=== PATIENT | male | born 1950 | race Caucasian/White ===

== ENCOUNTER → 2016-11-16 11:25 | Outpatient (CLI) | payer MEDICARE, OTHER ==
[~2016-11-16 11:25] MED LIST: DILAUDID4 MG PO; FLOMAX0.4 MG PO; FUROSEMIDE40 MG PO; K-DUR20 MEQ PO; LONITEN10 MG PO; LOVENOX40 MG/0.4 SC; NEURONTIN 300300 MG PO; NORMODYNE / TR100 MG PO; NORVASC10 MG PO; OMEPRAZOLE40 MG PO; PAMELOR10 MG PO; RIFADIN150 MG PO
[2016-11-16 11:49] LABS: ANION GAP 12.8 mmol/L (8-16); CALCIUM 9.2 mg/dL (8.5-10.1); CREATININE - SERUM 1.7 mg/dL (0.6-1.3); POTASSIUM - SERUM 5.8 mmol/L (3.5-5.1)
[2016-11-19 15:13] VITALS: BMI 32.1
== END | disposition home or self-care (01) ==
LOC: D.LABREF 11:25
PROVIDERS: Student in an Organized Health Care Education/Training Program
DX: E87.5 Hyperkalemia (principal)

== ENCOUNTER 2016-11-16 12:58 | Emergency (ER) | payer MEDICARE, OTHER ==
[2016-11-16 14:03] LABS: BASOPHILS 0.2 % (0.0-2.0); EOSINOPHILS 1.4 % (0-7); HEMATOCRIT 37.9 % (42.0-54.0); HEMOGLOBIN 12.9 g/dL (13.5-17.5); IMMATURE GRANULOCYTES 0.6 % (0-5); LYMPHOCYTES 14.6 % (15-50); MCH 31.8 pg (26.0-34.0); MCV 93.3 fL (80.0-100.0); MONOCYTES 9.1 % (2-11); NEUTROPHILS 74.1 % (40-80); PLATELET COUNT 538 10x3/uL (130-400); RBC 4.06 10x6/uL (4.20-6.10); RDW 13.6 % (11.5-14.5); WBC 12.9 10x3/uL (4.8-10.8)
[2016-11-16 14:12] LABS: ALBUMIN 2.6 g/dL (3.4-5.0); ANION GAP 14.1 mmol/L (8-16); BILIRUBIN - TOTAL 0.78 mg/dL (0.2-1.3); CALCIUM 9.4 mg/dL (8.5-10.1); CARBON DIOXIDE 26.1 mmol/L (21.0-32.0); CREATININE - SERUM 1.8 mg/dL (0.6-1.3); POTASSIUM - SERUM 5.2 mmol/L (3.5-5.1); PROTEIN - SERUM 7.6 g/dL (6.4-8.2)
[2016-11-19 15:13] VITALS: BMI 32.1
== END 2016-11-16 15:11 | disposition home or self-care (01) ==
LOC: D.ER 12:58
PROVIDERS: Family Medicine
DX: E87.5 Hyperkalemia (principal); N18.9 Chronic kidney disease, unspecified; Z98.890 Other specified postprocedural states; I12.9 Hypertensive chronic kidney disease with stage 1 through stage 4 chronic kidney disease, or unspecified chronic kidney disease

== ENCOUNTER 2016-11-19 13:43 | Outpatient (CLI) | payer MEDICARE, OTHER ==
[~2016-11-19] VITALS: Ht 188 cm; Wt 113.6 kg
[2016-11-19 14:47] LABS: BASOPHILS 0.5 % (0.0-2.0); EOSINOPHILS 2.6 % (0-7); HEMATOCRIT 33.5 % (42.0-54.0); HEMOGLOBIN 11.2 g/dL (13.5-17.5); IMMATURE GRANULOCYTES 0.3 % (0-5); LYMPHOCYTES 26.9 % (15-50); MCH 31.5 pg (26.0-34.0); MCHC 33.4 g/dL (31.0-37.0); MCV 94.4 fL (80.0-100.0); MEAN PLATELET VOLUME 9.6 fL (7.4-10.4); MONOCYTES 10.7 % (2-11); PLATELET COUNT 490 10x3/uL (130-400); RBC 3.55 10x6/uL (4.20-6.10); RDW 13.7 % (11.5-14.5); WBC 8.7 10x3/uL (4.8-10.8)
[2016-11-19] MEDS ORDERED: LONITEN10 MG PO (14:54)
[2016-11-19] MEDS ORDERED: NORVASC10 MG PO (14:57)
[2016-11-19] MEDS ORDERED: FUROSEMIDE40 MG PO (14:57)
[2016-11-19] MEDS ORDERED: NORMODYNE / TR100 MG PO (14:57)
[2016-11-19] MEDS ORDERED: K-DUR20 MEQ PO (14:58)
[2016-11-19] MEDS ORDERED: FLOMAX0.4 MG PO (14:58)
[2016-11-19] MEDS ORDERED: PAMELOR10 MG PO (14:59)
[2016-11-19] MEDS ORDERED: OMEPRAZOLE40 MG PO (15:00)
[2016-11-19] MEDS ORDERED: LOVENOX40 MG/0.4 SC (15:00)
[2016-11-19] MEDS ORDERED: DILAUDID4 MG PO (15:01)
[2016-11-19] MEDS ORDERED: NEURONTIN 300300 MG PO (15:01)
[2016-11-19] MEDS ORDERED: RIFADIN150 MG PO (15:02)
[2016-11-19 15:05] LABS: ALBUMIN 2.2 g/dL (3.4-5.0); ANION GAP 13.9 mmol/L (8-16); BILIRUBIN - TOTAL 0.62 mg/dL (0.2-1.3); C-REACTIVE PROTEIN 5.3 mg/dL (0.0-0.9); CALCIUM 8.1 mg/dL (8.5-10.1); CARBON DIOXIDE 25.9 mmol/L (21.0-32.0); CREATININE - SERUM 1.3 mg/dL (0.6-1.3); POTASSIUM - SERUM 5.8 mmol/L (3.5-5.1); PROTEIN - SERUM 5.8 g/dL (6.4-8.2)
[2016-11-19 15:13] VITALS: BP 145/92; Ht 188 cm; Wt 113.6 kg
--- NOTE | 2016-11-19 15:28 | NUR ---
1525--PICC FLUSHED WITH 10CC SALINE AND 3CC HEPARIN 100/1ML. PICC DC'D. DISCHARGE INSTRUCTIONS GIVEN, PT VERBALIZES UNDERSTANDING. PT OFF UNIT VIA [place]. MANDO MARX
[2016-11-19 15:53] LABS: ERYTHROCYTE SEDIMENTATION RATE 84 mm/hr (0-20)
== END 2016-11-19 15:25 | disposition home or self-care (01) ==
LOC: D.OPS 13:43
PROVIDERS: Student in an Organized Health Care Education/Training Program
DX: T84.59XA Infection and inflammatory reaction due to other internal joint prosthesis, initial encounter (principal)

== ENCOUNTER → 2017-01-11 16:30 | Outpatient (CLI) | payer MEDICARE, OTHER ==
[2016-11-19 15:13] VITALS: BMI 32.1
[2017-01-11 17:22] LABS: BASOPHILS 0.3 % (0.0-2.0); EOSINOPHILS 2.6 % (0-7); HEMATOCRIT 41.6 % (42.0-54.0); HEMOGLOBIN 13.6 g/dL (13.5-17.5); IMMATURE GRANULOCYTES 0.2 % (0-5); LYMPHOCYTES 33.3 % (15-50); MCHC 32.7 g/dL (31.0-37.0); MCV 94.8 fL (80.0-100.0); MEAN PLATELET VOLUME 10.6 fL (7.4-10.4); MONOCYTES 9.5 % (2-11); NEUTROPHILS 54.1 % (40-80); RBC 4.39 10x6/uL (4.20-6.10); RDW 15.1 % (11.5-14.5); WBC 5.8 10x3/uL (4.8-10.8)
[2017-01-11 17:25] LABS: PLATELET COUNT 211 10x3/uL (130-400)
[2017-01-11 17:48] LABS: ANION GAP 12.2 mmol/L (8-16); C-REACTIVE PROTEIN 2.3 mg/dL (0.0-0.9); CALCIUM 8.7 mg/dL (8.5-10.1); CARBON DIOXIDE 27.5 mmol/L (21.0-32.0); CREATININE - SERUM 1.3 mg/dL (0.6-1.3); POTASSIUM - SERUM 4.7 mmol/L (3.5-5.1)
[2017-01-11 18:27] LABS: ERYTHROCYTE SEDIMENTATION RATE 15 mm/hr (0-20)
== END | disposition home or self-care (01) ==
LOC: D.LABREF 16:30
PROVIDERS: Student in an Organized Health Care Education/Training Program
DX: T84.59XA Infection and inflammatory reaction due to other internal joint prosthesis, initial encounter (principal); Z79.2 Long term (current) use of antibiotics

== ENCOUNTER → 2017-02-14 12:27 | Outpatient (CLI) | payer MEDICARE, OTHER ==
[2016-11-19 15:13] VITALS: BMI 32.1
[2017-02-14 12:42] LABS: APPEARANCE CLEAR (CLEAR); BILIRUBIN NEGATIVE (NEGATIVE); COLOR STRAW (YELLOW); GLUCOSE NEGATIVE (NEGATIVE); KETONE NEGATIVE (NEGATIVE); LEUKOCYTE ESTERASE NEGATIVE (NEGATIVE); NITRITE NEGATIVE (NEGATIVE); PROTEIN NEGATIVE (NEGATIVE); UROBILINOGEN NORMAL (NORMAL)
[2017-02-14 12:50] LABS: ANION GAP 10.9 mmol/L (8-16); C-REACTIVE PROTEIN 0.5 mg/dL (0.0-0.9); CALCIUM 9.1 mg/dL (8.5-10.1); CARBON DIOXIDE 30.8 mmol/L (21.0-32.0); CREATININE - SERUM 1.4 mg/dL (0.6-1.3); POTASSIUM - SERUM 4.7 mmol/L (3.5-5.1)
[2017-02-14 13:42] LABS: ERYTHROCYTE SEDIMENTATION RATE 13 mm/hr (0-20)
== END | disposition home or self-care (01) ==
LOC: D.LABREF 12:27
PROVIDERS: Student in an Organized Health Care Education/Training Program
DX: R34 Anuria and oliguria (principal); Z79.2 Long term (current) use of antibiotics; T84.59XD Infection and inflammatory reaction due to other internal joint prosthesis, subsequent encounter

== ENCOUNTER → 2017-05-17 14:26 | Outpatient (CLI) | payer MEDICARE, OTHER ==
[2016-11-19 15:13] VITALS: BMI 32.1
[2017-05-17 14:59] LABS: BASOPHILS 0.2 % (0-2); EOSINOPHILS 2.6 % (0-7); HEMATOCRIT 45.8 % (42.0-54.0); HEMOGLOBIN 15.9 g/dL (13.5-17.5); IMMATURE GRANULOCYTES 0.3 % (0-5); LYMPHOCYTES 33.5 % (15-50); MCH 31.8 pg (26.0-34.0); MCHC 34.7 g/dL (31.0-37.0); MCV 91.6 fL (80.0-100.0); MONOCYTES 7.9 % (2-11); NEUTROPHILS 55.5 % (40-80); PLATELET COUNT 212 10x3/uL (130-400); RDW 14.3 % (11.5-14.5); WBC 6.2 10x3/uL (4.8-10.8)
[2017-05-17 15:07] LABS: CALC OSMOLALITY 281 mosm/kg (275-300); CALCIUM 8.8 mg/dL (8.5-10.1); CARBON DIOXIDE 31.1 mmol/L (21.0-32.0); CHLORIDE - SERUM 102 mmol/L (98-107); CREATININE - SERUM 1.5 mg/dL (0.6-1.3); GLUCOSE 90 mg/dL (74-106); POTASSIUM - SERUM 4.4 mmol/L (3.5-5.1); SODIUM 139 mmol/L (136-145); UREA NITROGEN 24 mg/dL (7-18); eGFR NON AFRICAN AMERICAN 50 mL/min (90-120)
[2017-05-17 15:10] LABS: C-REACTIVE PROTEIN < 0.2 mg/dL (0.0-0.9)
[2017-05-17 16:11] LABS: ERYTHROCYTE SEDIMENTATION RATE 5 mm/hr (0-20)
== END | disposition home or self-care (01) ==
LOC: D.LABREF 14:26
PROVIDERS: Student in an Organized Health Care Education/Training Program
DX: M25.562 Pain in left knee (principal); Z79.2 Long term (current) use of antibiotics

== ENCOUNTER → 2017-11-20 14:41 | Outpatient (CLI) | payer MEDICARE, OTHER ==
[2016-11-19 15:13] VITALS: BMI 32.1
== END | disposition home or self-care (01) ==
LOC: D.LABREF 14:41
DX: A49.01 Methicillin susceptible Staphylococcus aureus infection, unspecified site (principal); Z51.81 Encounter for therapeutic drug level monitoring; Z79.2 Long term (current) use of antibiotics; T84.59XD Infection and inflammatory reaction due to other internal joint prosthesis, subsequent encounter

== ENCOUNTER → 2017-11-20 17:45 | Outpatient (CLI) | payer MEDICARE, OTHER ==
[2016-11-19 15:13] VITALS: BMI 32.1
[2017-11-20 18:46] LABS: BASOPHILS 0.3 % (0-2); EOSINOPHILS 3.2 % (0-7); HEMATOCRIT 45.5 % (42.0-54.0); HEMOGLOBIN 15.6 g/dL (13.5-17.5); IMMATURE GRANULOCYTES 0.5 % (0-5); LYMPHOCYTES 34.1 % (15-50); MCH 31.8 pg (26.0-34.0); MCHC 34.3 g/dL (31.0-37.0); MCV 92.7 fL (80.0-100.0); MEAN PLATELET VOLUME 11.4 fL (7.4-10.4); MONOCYTES 7.6 % (2-11); NEUTROPHILS 54.3 % (40-80); PLATELET COUNT 201 10x3/uL (130-400); RBC 4.91 10x6/uL (4.20-6.10); WBC 6.5 10x3/uL (4.8-10.8)
[2017-11-20 19:08] LABS: CALCIUM 8.6 mg/dL (8.5-10.1); CARBON DIOXIDE 27.1 mmol/L (21.0-32.0); CREATININE - SERUM 1.7 mg/dL (0.6-1.3); POTASSIUM - SERUM 4.1 mmol/L (3.5-5.1)
== END | disposition home or self-care (01) ==
LOC: D.LABREF 17:45
PROVIDERS: Student in an Organized Health Care Education/Training Program
DX: A49.01 Methicillin susceptible Staphylococcus aureus infection, unspecified site (principal); Z51.81 Encounter for therapeutic drug level monitoring; Z79.2 Long term (current) use of antibiotics; T84.59XD Infection and inflammatory reaction due to other internal joint prosthesis, subsequent encounter

== ENCOUNTER 2020-05-15 16:14 | Emergency (ER) | payer MEDICARE, OTHER ==
[~2020-05-15] VITALS: Ht 188 cm; Wt 113.6 kg
[2020-05-15 16:18] VITALS: Ht 188 cm; Wt 113.6 kg
[2020-05-15] MEDS ORDERED: VALTREX1000 MG PO (16:27)
[2020-05-15] MEDS ORDERED: PREDNISONE50 MG PO (16:27)
[2020-05-15 16:38] VITALS: BP 160/92
== END 2020-05-15 16:39 | disposition home or self-care (01) ==
LOC: D.ER 16:14
DX: B02.9 Zoster without complications (principal); I10 Essential (primary) hypertension; M54.2 Cervicalgia